=== PATIENT | female | born 2000 | race Caucasian/White ===

== ENCOUNTER 2020-04-08 23:31 | Emergency (ER) | payer OTHER ==
[2020-04-08] MEDS ORDERED: Zofran 4 MG/2 ML VIAL IV ONE (23:49)
[2020-04-08] MEDS ORDERED: TYLENOL 325 MG PO STA (23:49)
[2020-04-08] MEDS ORDERED: CLINDAMYCIN-D5W 900 MG/50 ML*** 900 MG/50 ML BAG IV STA (23:49)
[2020-04-08] MEDS ORDERED: Sodium Chloride 0.9% 1000 ML 1,000 ML IV STA (23:49)
[2020-04-08] MEDS ORDERED: GENTAMICIN IV ONE (23:51)
[2020-04-08] MEDS ORDERED: MOTRIN 600 MG PO ONE (23:55)
--- NOTE | 2020-04-09 00:02 | ERPHSYRPT ---
- History of Present Illness Time Seen by Provider: 04/08/20 23:42 Historian: patient Exam Limitations: no limitations Physician History: Patient is here with fever, abdominal pain, and post op issue. Patient is 3-4 weeks post section. This was done on 03/12/2020. Earlier today, the patient developed some suprapubic pain. States that she does have some draining from her wound. Location: suprapubic pain Quality: cramping Radiation: none Severity: moderate Duration: this AM Timing: throughout today Modifying factors/associated signs and symptoms: recent Allergies/Adverse Reactions: Penicillins Allergy (Mild, Verified 04/08/20 23:41) Hives Home Medications: Hydrocodone/Acetaminophen [Hydrocodone-Acetamin 5-325 mg] 5 mg PO Q6HPRN PRN 04/08/20 [History] - Review of Systems Constitutional: No Fever, No Chills Eyes: No Symptoms Ears, Nose, & Throat: No Symptoms Respiratory: No Cough, No Dyspnea Cardiac: No Chest Pain, No Edema, No Syncope Abdominal/Gastrointestinal: Abdominal Pain (suprapubic tenderness and drainage), No Nausea, No Vomiting, No Diarrhea Genitourinary Symptoms: No Dysuria Musculoskeletal: No Back Pain, No Neck Pain Skin: No Rash Neurological: No Dizziness, No Focal Weakness, No Sensory Changes Psychological: No Symptoms Endocrine: No Symptoms All Other Systems: Reviewed and Negative - Past Medical History Pertinent Past Medical History: No Neurological History: No Pertinent History ENT History: No Pertinent History Cardiac History: No Pertinent History Respiratory History: No Pertinent History Endocrine Medical History: No Pertinent History Musculoskeletal History: No Pertinent History GI Medical History: No Pertinent History History: No Pertinent History Psycho-Social History: No Pertinent History Female Reproductive Disorders: No Pertinent History Other Medical History: HX TB at age 2 - Past Surgical History Past Surgical History: Yes Neuro Surgical History: No Pertinent History Cardiac: No Pertinent History Respiratory: No Pertinent History Gastrointestinal: No Pertinent History Genitourinary: No Pertinent History Musculoskeletal: No Pertinent History Female Surgical History: No Pertinent History, Section - Social History Drug Use: none - Nursing Vital Signs Nursing Vital Signs: Initial Vital Signs Temperature 101.8 F 04/08/20 23:44 Pulse Rate 133 H 04/08/20 23:44 Respiratory Rate 20 04/08/20 23:44 Blood Pressure 150/79 04/08/20 23:44 O2 Sat by Pulse Oximetry 98 04/08/20 23:44 Pain Scale Pain Intensity 4 - Physical Exam General Appearance: no apparent distress, alert Eye Exam: PERRL/EOMI, eyes nml inspection Ears, Nose, Throat Exam: normal ENT inspection, pharynx normal, moist mucous membranes Neck Exam: normal inspection, non-tender, supple, full range of motion Respiratory Exam: normal breath sounds, lungs clear, No respiratory distress Cardiovascular Exam: regular rate/rhythm, normal heart sounds Gastrointestinal/Abdomen Exam: soft, tenderness (slightly draining wound, tenderness without rebound or guarding. ), other, No mass Back Exam: normal inspection, normal range of motion, No CVA tenderness, No vertebral tenderness Extremity Exam: normal inspection, normal range of motion, pelvis stable Neurologic Exam: alert, oriented x 3, cooperative, normal mood/affect, nml cerebellar function, sensation nml, No motor deficits Skin Exam: normal color, warm, dry SpO2: 98 - Course Nursing assessment & vital signs reviewed: Yes EKG Interpreted by Me: Sinus Rhythm Ordered Tests: Active Orders 24 hr Category Date Time Status EKG-ER Only STAT Care 04/08/20 23:49 Active IV Insertion STAT Care 04/08/20 23:49 Active CULTURE,URINE Stat Lab 04/09/20 00:52 Received Lactic Acid Stat Lab 04/08/20 23:55 Completed UA W/RFX UR CULTURE Stat Lab 04/09/20 00:52 Completed Medication Summary Discontinued Medications Generic Name Dose Route Start Last Admin Trade Name Freq PRN Reason Stop Dose Admin Acetaminophen 975 mg 04/08/20 23:49 04/09/20 00:09 Tylenol 325 Mg PO 04/08/20 23:50 975 mg STAT STA Administration Acetaminophen Confirm 04/09/20 00:04 Tylenol 325 Mg Administered 04/09/20 00:05 Dose 975 mg .ROUTE .STK-MED ONE Sodium Chloride 1,000 mls @ 999 mls/hr 04/08/20 23:49 04/09/20 00:10 Sodium Chloride 0.9% 1000 Ml IV 04/09/20 00:49 999 mls/hr .Q1H1M STA Administration Clindamycin HCl/Dextrose 900 mg in 50 mls @ 100 mls/hr 04/08/20 23:49 04/09/20 00:54 Clindamycin-D5w 900 Mg/50 Ml IV 04/09/20 00:18 Infused STAT STA Infusion Gentamicin Sulfate/Sodium Chloride 160 mg in 100 mls @ 200 mls/hr 04/08/20 23:51 04/09/20 00:50 Gentamicin 80 Mg/50 Ml Premix IV 04/09/20 00:20 200 mls/hr STAT ONE 200 mls/hr Infusion Clindamycin HCl/Dextrose Confirm 04/09/20 00:04 Clindamycin-D5w 900 Mg/50 Ml Administered 04/09/20 00:05 Dose 900 mg in 50 mls @ ud IV .STK-MED ONE Sodium Chloride Confirm 04/09/20 00:04 Sodium Chloride 0.9% 1000 Ml Administered 04/09/20 00:05 Dose 1,000 mls @ ud .ROUTE .STK-MED ONE Gentamicin Sulfate/Sodium Chloride Confirm 04/09/20 00:04 Gentamicin 80 Mg/50 Ml Premix Administered 04/09/20 00:05 Dose 80 mg in 50 mls @ ud IV .STK-MED ONE Gentamicin Sulfate/Sodium Chloride Confirm 04/09/20 00:51 Gentamicin 80 Mg/50 Ml Premix Administered 04/09/20 00:52 Dose 80 mg in 50 mls @ ud IV .STK-MED ONE Ibuprofen 600 mg 04/08/20 23:55 04/09/20 00:08 Motrin 600 Mg PO 04/08/20 23:56 600 mg STAT ONE Administration Ibuprofen Confirm 04/09/20 00:04 Motrin 600 Mg Administered 04/09/20 00:05 Dose 600 mg .ROUTE .STK-MED ONE Ondansetron HCl 4 mg 04/08/20 23:49 04/09/20 00:09 Zofran 4 Mg/2 Ml Vial IV 04/08/20 23:50 4 mg STAT ONE Administration Ondansetron HCl Confirm 04/09/20 00:03 Zofran 4 Mg/2 Ml Vial Administered 04/09/20 00:04 Dose 4 mg .ROUTE .STK-MED ONE Lab/Rad Data: Laboratory Result Diagrams 04/08/20 00:04 04/08/20 00:04 Laboratory Results 10/04/08/20 04/08/20 Range/Units 00:52 23:55 00:04 WBC (4.0-10.5) K/mm3 RBC (4.1-5.4) M/mm3 Hgb (12.0-16.0) gm/dl Hct (35-47) % MCV (78-100) fl MCH (26-32) pg MCHC (32-36) g/dl RDW (11.5-14.0) % Plt Count (150-450) K/mm3 MPV (7.5-11.0) fl Gran % (36.0-66.0) % Eos # (Auto) (0-0.5) Absolute Lymphs (auto) (1.0-4.6) Absolute Monos (auto) (0.0-1.3) Lymphocytes % (24.0-44.0) % Monocytes % (0.0-12.0) % Eosinophils % (0.00-5.0) % Basophils % (0.0-0.4) % Absolute Granulocytes (1.4-6.9) Basophils # (0-0.4) PT 13.1 H (9.95-12.35) SECONDS INR 1.16 (0.8-3.0) Sodium (137-145) mmol/L Potassium (3.5-5.1) mmol/L Chloride (98-107) mmol/L Carbon Dioxide (22-30) mmol/L Anion Gap (5-15) MEQ/L BUN (7-17) mg/dL Creatinine (0.52-1.04) mg/dL Estimated GFR ML/MIN Glucose (74-106) mg/dL Lactic Acid 1.3 (0.4-2.0) Calcium (8.4-10.2) mg/dL Total Bilirubin (0.2-1.3) mg/dL AST (14-36) U/L ALT (0-35) U/L Alkaline Phosphatase (38-126) U/L Serum Total Protein (6.3-8.2) g/dL Albumin (3.5-5.0) g/dL Urine Color YELLOW (YELLOW) Urine Appearance SLIGHTLY CLOUDY (CLEAR) Urine pH 5.0 (5-6) Ur Specific [place] 1.034 (1.005-1.025) Urine Protein 30 (Negative) Urine Ketones NEGATIVE (NEGATIVE) Urine Blood MODERATE (0-5) Iggy/ul Urine Nitrite NEGATIVE (NEGATIVE) Urine Bilirubin NEGATIVE (NEGATIVE) Urine Urobilinogen NEGATIVE (0-1) mg/dL Ur Leukocyte Esterase LARGE (NEGATIVE) Urine WBC (Auto) 51-100 (0-5) /HPF Urine RBC (Auto) 6-10 (0-2) /HPF U Epithel Cells (Auto) RARE (FEW) /HPF Urine Bacteria (Auto) RARE (NEGATIVE) /HPF Urine Mucus (Auto) SLIGHT (NEGATIVE) /HPF Urine Culture Reflexed ORDERED SEPARATELY (NO) Urine Glucose NEGATIVE (NEGATIVE) mg/dL 04/08/20 04/08/20 Range/Units 00:04 00:04 WBC 13.4 H (4.0-10.5) K/mm3 RBC 4.67 (4.1-5.4) M/mm3 Hgb 11.7 L (12.0-16.0) gm/dl Hct 37.3 (35-47) % MCV 79.9 (78-100) fl MCH 25.1 L (26-32) pg MCHC 31.4 L (32-36) g/dl RDW 17.5 H (11.5-14.0) % Plt Count 208 (150-450) K/mm3 MPV 9.6 (7.5-11.0) fl Gran % 87.0 H (36.0-66.0) % Eos # (Auto) 0.14 (0-0.5) Absolute Lymphs (auto) 0.91 L (1.0-4.6) Absolute Monos (auto) 0.68 (0.0-1.3) Lymphocytes % 6.8 L (24.0-44.0) % Monocytes % 5.1 (0.0-12.0) % Eosinophils % 1.0 (0.00-5.0) % Basophils % 0.1 (0.0-0.4) % Absolute Granulocytes 11.69 H (1.4-6.9) Basophils # 0.02 (0-0.4) PT (9.95-12.35) SECONDS INR (0.8-3.0) Sodium 139 (137-145) mmol/L Potassium 3.9 (3.5-5.1) mmol/L Chloride 108 H (98-107) mmol/L Carbon Dioxide 23 (22-30) mmol/L Anion Gap 12.4 (5-15) MEQ/L BUN 11 (7-17) mg/dL Creatinine 0.81 (0.52-1.04) mg/dL Estimated GFR > 60.0 ML/MIN Glucose 112 H (74-106) mg/dL Lactic Acid (0.4-2.0) Calcium 9.2 (8.4-10.2) mg/dL Total Bilirubin 0.10 L (0.2-1.3) mg/dL AST 23 (14-36) U/L ALT 22 (0-35) U/L Alkaline Phosphatase 127 H (38-126) U/L Serum Total Protein 7.9 (6.3-8.2) g/dL Albumin 4.3 (3.5-5.0) g/dL Urine Color (YELLOW) Urine Appearance (CLEAR) Urine pH (5-6) Ur Specific [place] (1.005-1.025) Urine Protein (Negative) Urine Ketones (NEGATIVE) Urine Blood (0-5) Iggy/ul Urine Nitrite (NEGATIVE) Urine Bilirubin (NEGATIVE) Urine Urobilinogen (0-1) mg/dL Ur Leukocyte Esterase (NEGATIVE) Urine WBC (Auto) (0-5) /HPF Urine RBC (Auto) (0-2) /HPF U Epithel Cells (Auto) (FEW) /HPF Urine Bacteria (Auto) (NEGATIVE) /HPF Urine Mucus (Auto) (NEGATIVE) /HPF Urine Culture Reflexed (NO) Urine Glucose (NEGATIVE) mg/dL - Progress Progress: improved Progress Note: 04/09/20 00:04 Patient is here with suprapubic pain, fever, headache post section 1 month ago. Tonight, my biggest fear would be endometritis. Patient may also have some type of other postop infection, abscess underneath the incision. I was not able to palpate an abscess. Will obtain basic labs, fluids, broad-spectrum antibiotics. Will give clindamycin and gentamicin tonight given concern for endometritis. This will also be a broad-spectrum coverage for any other polymicrobial infections. Patient most likely will be transferred back to her [facility]. Elva Landry M.D. was her original OBGYN. 04/09/20 01:45 Patient's tachycardia and pain improved with antibiotics and fluids here. We will recheck a temperature now. I did discuss over the phone with on-call ER physician at [facility], Dr. Zee. We discussed possible diagnoses, further work-up, transfer. We did discuss endometritis being high on her differential diagnosis. Therefore, we did make the decision to transfer patient to [facility] for higher level of care. I discussed this with the patient and the . They feel comfortable with the transfer. - Departure Departure Disposition: Transfer Clinical Impression: Endometritis affecting Condition: Stable Critical Care Time: Yes Critical Care Time(excluding separately billable procedures): Critical 30-74 mins Referrals: VAMSHI MENA [Primary Care Provider] -
[2020-04-09] MEDS ORDERED: Zofran 4 MG/2 ML VIAL ONE (00:03)
[2020-04-09] MEDS ORDERED: GENTAMICIN 80 MG/50 ML PREMIX*** 80 MG/50 ML ML IV ONE ×2 (00:04→00:51)
[2020-04-09] MEDS ORDERED: MOTRIN 600 MG ONE (00:04)
[2020-04-09] MEDS ORDERED: CLINDAMYCIN-D5W 900 MG/50 ML*** 900 MG/50 ML BAG IV ONE (00:04)
[2020-04-09] MEDS ORDERED: Sodium Chloride 0.9% 1000 ML 1,000 ML ONE (00:04)
[2020-04-09] MEDS ORDERED: TYLENOL 325 MG ONE (00:04)
[2020-04-09 00:08] LABS: Absolute Neutrophil Ct (ANC) 11.69 (1.4-6.9); BASOPHIL % 0.1 % (0.0-0.4); Basophil (Absolute #) 0.02 (0-0.4); Eosinophil (Absolute #) 0.14 (0-0.5); Hematocrit 37.3 % (35-47); Hemoglobin 11.7 gm/dl (12.0-16.0); Lymphocyte (Absolute #) 0.91 (1.0-4.6); Lymphocytes % 6.8 % (24.0-44.0); Mean Cell Volume 79.9 fl (78-100); Mean Corpuscular Hemoglobin 25.1 pg (26-32); Mean Corpuscular Hgb Concent. 31.4 g/dl (32-36); Mean Platelet Volume 9.6 fl (7.5-11.0); Monocyte (Absolute #) 0.68 (0.0-1.3); Monocytes % 5.1 % (0.0-12.0); Platelet Count 208 K/mm3 (150-450); Red Blood Count 4.67 M/mm3 (4.1-5.4); Red Cell Distribution Width 17.5 % (11.5-14.0); White Blood Count 13.4 K/mm3 (4.0-10.5)
[2020-04-09 00:21] LABS: INR 1.16 (0.8-3.0); PROTIME 13.1 SECONDS (9.95-12.35)
[2020-04-09 00:23] LABS: ALBUMIN 4.3 g/dL (3.5-5.0); ALKALINE PHOSPHATASE 127 U/L (38-126); ANION GAP 12.4 MEQ/L (5-15); BLOOD UREA NITROGEN 11 mg/dL (7-17); CHLORIDE 108 mmol/L (98-107); Calcium 9.2 mg/dL (8.4-10.2); Carbon Dioxide 23 mmol/L (22-30); Creatinine 1 0.81 mg/dL (0.52-1.04); EST GLOMERULAR FILTRATION RATE > 60.0 ML/MIN; Glucose 112 mg/dL (74-106); Potassium 3.9 mmol/L (3.5-5.1); SGOT/AST 23 U/L (14-36); SGPT/ALT 22 U/L (0-35); SODIUM 139 mmol/L (137-145); Total Protein 7.9 g/dL (6.3-8.2)
[2020-04-09 01:00] LABS: Appearance SLIGHTLY CLOUDY (CLEAR); Bacteria RARE /HPF (NEGATIVE); Bilirubin NEGATIVE (NEGATIVE); Blood MODERATE Ery/ul (0-5); Epithelial Cells RARE /HPF (FEW); Glucose NEGATIVE (NEGATIVE); Ketones NEGATIVE (NEGATIVE); Leukocyte Esterase LARGE (NEGATIVE); Mucus SLIGHT /HPF (NEGATIVE); Nitrite NEGATIVE (NEGATIVE); Protein,Urine Dip 30 (Negative); Specific Gravity 1.034 (1.005-1.025); Urobilinogen NEGATIVE mg/dL (0-1); WBC 51-100 /HPF (0-5)
[2020-04-09 02:14] VITALS: BP 125/69; PULSE 84
[2020-04-09 02:24] VITALS: O2SAT 98
== END 2020-04-09 02:14 | disposition short-term general hospital (02) ==
LOC: ED 23:31
DX: O86.12 Endometritis following delivery (principal); O86.02 Infection of obstetric surgical wound, deep incisional site; R50.9 Fever, unspecified; R10.9 Unspecified abdominal pain
CPT/HCPCS: 36000; 36415; 80053; 81001; 83605; 85025; 85610; 87040; 87086; 93005; 96360; 96365; 96367; 96374; 99285; 99291; J1580; J2405; A9270-GY